=== PATIENT | female | born 1995 | race Caucasian/White ===

== ENCOUNTER 2020-03-15 19:50 | Emergency (ER) | payer SELFPAY ==
[~2020-03-15] VITALS: Ht 165.1 cm; Wt 73.5 kg
--- NOTE | 2020-03-15 21:51 | NUR ---
HOUSEKEEPER CAREGIVER: PT TO ROOM FROM [facility]
[2020-03-15] MEDS ORDERED: ONDANSETRON ODT 4 MG PO ONE (22:00)
[2020-03-15] MEDS ORDERED: OXYcodone/APAP 5/325MG TABLET PO ONE (22:00)
[2020-03-15] MEDS ORDERED: ONDANSETRON ODT 4 MG ONE (22:04)
[2020-03-15] MEDS ORDERED: OXYcodone/APAP 5/325MG TABLET ONE (22:04)
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
[2020-03-15] MEDS ORDERED: LIDOCAINE 1%-EPI 1:100K, 20ML ONE (22:20)
[2020-03-15] MEDS ORDERED: NEOSPORIN OINT. PKT 1 PACKET ONE (22:26)
[2020-03-15] MEDS ORDERED: AMOXICILLIN/CLAV 875-125MG TABLET PO ONE (22:46)
[2020-03-15] MEDS ORDERED: AMOXICILLIN/CLAV 875-125MG TABLET ONE (22:58)
--- NOTE | 2020-03-15 23:00 | NUR ---
LATE ENTRY: PT WALKING AROUND ROOM, DENIES ADDITIONAL NEEDS AT THIS TIME, STATES HER PAIN IS GONE. MEDICATED PER OCT. WCTM.
[2020-03-15 23:24] VITALS: BP 126/83
--- NOTE | 2020-03-15 23:24 | NUR ---
PT WOUNDS DRESSED, Patient given discharge instructions and they have confirmed that they understand the instructions. Patient ambulatory with steady gait. NAD, VSS, DENIES ADDITIONAL QUESTIONS OR NEEDS AT THIS TIME. NO PT BELONGINGS LEFT IN ROOM AT TIME OF DC.
== END 2020-03-15 23:36 | disposition home or self-care (01) ==
LOC: ED 21:59
DX: S41.151A Open bite of right upper arm, initial encounter (principal); W54.0XXA Bitten by dog, initial encounter; Y93.89 Activity, other specified; Y92.009 Unspecified place in unspecified non-institutional (private) residence as the place of occurrence of the external cause; Y99.8 Other external cause status
CPT/HCPCS: 12032; 73060; 99284; Q0162